=== PATIENT | male | born 1990 | race Hispanic/Latino ===

== ENCOUNTER 2025-04-13 19:04 | Emergency (ER) | payer SELFPAY ==
[2025-04-13 19:07] VITALS: BP 128/78; PULSE 90; RESP 16; TEMP 37.1; O2SAT 98; BMI 24.5
--- NOTE | 2025-04-13 20:36 | EX.ED.GENINJ ---
HPI History of Present Illness Chief Complaint: Nausea/Vomiting/Diarrhea PFSH PFSH Medical History no medical history Home Medications ?Medication ?Instructions ?Recorded ?Last Taken ?Type ondansetron 4 mg disintegrating 4 mg PO Q8H PRN PRN Nausea #10 tabs 04/13/25 Unknown Rx tablet ondansetron 4 mg disintegrating 4 mg PO Q8H PRN PRN Nausea #10 tabs 04/13/25 Unknown Rx tablet Social History Smoking Status: Unknown if ever smoked EXAM Physical Exam Const Vital Signs: 04/13/25 19:07 04/13/25 22:24 04/13/25 22:50 Temperature 98.8 F 98.8 F Temperature Source Oral Pulse Rate 90 90 Respiratory Rate 16 16 Blood Pressure 128/78 H 128/78 H Blood Pressure Mean 94 94 Pulse Ox 98 98 99 Oxygen Delivery Method Room Air [facility] Narrative Medical decision making narrative: HISTORY OF PRESENT ILLNESS: Chief complaint: Nausea vomiting diarrhea 34-year-old male presents with his significant other/child for concern about nausea vomiting diarrhea. He states this began today. REVIEW OF SYSTEMS: Pertinent positives: Nausea vomiting and diarrhea Pertinent negatives: Fever, melena PHYSICAL EXAM: Nursing triage notes reviewed, Vital signs reviewed Constitutional: please see mdm HENT: MMM Eyes: Pupils equal round and reactive to light, Extraocular muscles intact Neck: No stridor, no JVD, full neck ROM Lungs: Clear to auscultation, No wheezing or rales. No increased work of breathing, no conversational dyspnea, no accessory muscle use, no nasal flaring. No respiratory distress noted Heart: Regular rate and rhythm, No murmurs, No rubs and No gallops, 2+ distal pulses (radial, femoral, posterior tibial) in all extremities Abdomen: Soft, there is no tenderness, rigidity, rebound or guarding, no obvious peritoneal signs, no palpable pulsatile abdominal masses, no auscultated abdominal bruit : No CVAT Extremities: No edema Neuro: No new focal neurological deficits, cranial nerves II through XII intact, 5/5 strength in all present extremities. Intact sensation to light touch in all present extremities, 2+ reflexes bilateral patella tendons. Skin: No rash or lesions noted MEDICAL DECISION MAKING: Chief Complaint: please see HPI External records reviewed: No prior encounters noted Factors affecting care: none Social determinants of health: none History obtained from others: none Consults: none [facility] Narrative: The patient was initially hemodynamically stable, afebrile and nontoxic-appearing. Exam with a benign abdomen. No peritoneal signs noted. I considered the following differential diagnosis: Dehydration, viral gastroenteritis, acute pancreatitis, hepatobiliary obstruction, dehydration, electrolyte disturbance, acute kidney injury Pt appeared well hydrated. Gave p.o. Zofran with relief of nausea. Repeat abdominal exam remained benign. Will prescribe Zofran for home-going. Strict return precautions were discussed. Suspect the patient is suffering from gastroenteritis. The patient and/or family, caregivers express understanding. The patient and/or family, caregivers agrees with the plan. Shared decision making: I will have a discussion with the patient and or visitors regarding risk/benefits of further testing or admission. They will be made aware of of the risk/benefits inherent in this decision they will be given the opportunity to voice understanding. Total critical care time today provided was at least 0 minutes. This excludes separately billable procedures. Critical care time (if documented) is secondary to the patient having high probability of clinically significant/life threatening deterioration in the patient's condition which required my urgent intervention. Impression: 1. Nausea vomiting and diarrhea Dispo: Discharge home This note was generated with [employer] dictation software. It may contain incorrect words, spelling, and punctuation that were not noted in review of the chart prior to signing. Discharge Plan Triage Chief Complaint: Nausea/Vomiting/Diarrhea ED Provider: Bismark Sanders Dx/Rx/DC Orders Instructions: ED Diet Vomiting Diarrhea Prescriptions: New ondansetron 4 mg tablet,disintegrating 4 mg PO Q8H PRN PRN (Reason: Nausea) Qty: 10 0RF ondansetron 4 mg tablet,disintegrating 4 mg PO Q8H PRN PRN (Reason: Nausea) Qty: 10 0RF Primary Care Provider: Care Physician,No Primary Referrals: Elsa Yao MD [Med Staff - Insurance Claims Adjuster] - Activity Restrictions/Additional Instructions: Thank you for trusting us with your care today! Your presentation is consistent with gastroenteritis. This typically resolves on its own in 7 to 14 days. It is imperative that you keep up with hydration with oral fluids. Please take Tylenol (2 pills, 650 mg), ibuprofen (2 pills, 400 mg) every 6 hours as needed for pain and fever control. Please take Zofran as needed for nausea or vomiting control. Please return to the emergency department if your symptoms change or worsen. Please follow with your primary care physician for further outpatient evaluation and management. ?Destini por confiarnos davis atenci?n m?dica hoy! Davis cuadro cl?radha es compatible con gastroenteritis. Esta suele resolverse por s? ellis en un plazo de 7 a 14 d?as. Es fundamental que mantenga la hidrataci?n con l?quidos orales. [place] Tylenol (2 pastillas de 650 mg) e ibuprofeno (2 pastillas de 400 mg) cada 6 horas seg?n sea necesario para controlar el dolor y la fiebre. [place] Zofran seg?n sea necesario para controlar las n?useas o los v?mitos. Si adamaris s?ntomas cambian o empeoran, acuda a urgencias. Consulte con davis m?dico de cabecera para ricarda evaluaci?n y tratamiento ambulatorios adicionales. Print Language: Trin[place] Disposition Disposition: Home, Self Care Discharge Date/Time: 04/13/25 22:50
[2025-04-13 22:24] VITALS: BP 128/78; PULSE 90; RESP 16; TEMP 37.1; O2SAT 98
[2025-04-13 22:50] VITALS: O2SAT 99
== END 2025-04-13 22:50 | disposition home or self-care (01) ==
PROVIDERS: Emergency Provider Emergency Medicine; Visit Provider Emergency Medicine
DX: R11.2 Nausea with vomiting, unspecified (principal); R19.7 Diarrhea, unspecified
CPT/HCPCS: 99282